=== PATIENT | male | born 1960 | race African-American/Black ===

== ENCOUNTER 2017-07-21 16:42 | Emergency (ER) | payer MEDICARE ==
[~2017-07-21] VITALS: Ht 185.4 cm; Wt 95.5 kg
[2017-07-21 17:10] VITALS: Ht 185.4 cm; Wt 95.5 kg
[2017-07-21 20:27] LABS: BASOPHILS 0.2 % (0-2); EOSINOPHILS 1.1 % (0-7); HEMATOCRIT 31.7 % (42.0-54.0); HEMOGLOBIN 10.1 g/dL (13.5-17.5); IMMATURE GRANULOCYTES 0.2 % (0-5); LYMPHOCYTES 20.2 % (15-50); MCH 31.6 pg (26.0-34.0); MCHC 31.9 g/dL (31.0-37.0); MCV 99.1 fL (80.0-100.0); MEAN PLATELET VOLUME 10.5 fL (7.4-10.4); MONOCYTES 8.8 % (2-11); NEUTROPHILS 69.5 % (40-80); PLATELET COUNT 161 10x3/uL (130-400); RDW 13.3 % (11.5-14.5); WBC 6.3 10x3/uL (4.8-10.8)
[2017-07-21 20:31] LABS: APTT 27.6 SECONDS (22.8-39.4); INR 1.14 (0.85-1.17); PROTIME 14.2 SECONDS (11.6-15.0)
[2017-07-21 20:36] LABS: ALBUMIN 3.1 g/dL (3.4-5.0); ANION GAP 10.1 mmol/L (8-16); BILIRUBIN - TOTAL 0.97 mg/dL (0.2-1.3); CARBON DIOXIDE 31.3 mmol/L (21.0-32.0); CREATININE - SERUM 3.6 mg/dL (0.6-1.3); POTASSIUM - SERUM 3.4 mmol/L (3.5-5.1); PROTEIN - SERUM 7.3 g/dL (6.4-8.2)
[2017-07-22 04:43] VITALS: BP 127/82
== END 2017-07-21 22:18 | disposition home or self-care (01) ==
LOC: D.ER 16:42
PROVIDERS: Family Medicine
DX: T82.838A Hemorrhage due to vascular prosthetic devices, implants and grafts, initial encounter (principal); I12.0 Hypertensive chronic kidney disease with stage 5 chronic kidney disease or end stage renal disease; N18.6 End stage renal disease; I50.9 Heart failure, unspecified

== ENCOUNTER 2019-10-11 06:43 | Day surgery (SDC) | payer OTHER, MEDICARE ==
[~2019-10-11] VITALS: Ht 185.4 cm; Wt 83.0 kg
--- NOTE | ~2019-10-11 | OP ---
PATIENT NAME: QAMAR LEE MEDICAL RECORD: [id number] :60 LOCATION:[facility] ADMISSION DATE: SURGEON: KALLI ELY MD DATE OF OPERATION: 10/11/2019 PREOPERATIVE DIAGNOSES: End-stage renal disease and dependence on hemodialysis and thrombocytopenia, uncertain etiology. POSTOPERATIVE DIAGNOSES: End-stage renal disease and dependence on hemodialysis and thrombocytopenia, uncertain etiology. OPERATION PERFORMED: Implantation of right arm brachial artery to axillary vein rainbow configured Artegraft AV graft. SURGEON: Kalli Eyl MD ANESTHESIA: Regional nerve block plus general per LOCK ASSEMBLER BLOOD LOSS: Insignificant. The patient transfused 1 unit platelets intraoperatively. PREOPERATIVE NOTE: Mr. Lee is a 58-year-old male who has begun hemodialysis with a right internal jugular tunneled dialysis catheter. He has a left-sided AICD. He was referred to me by Dr. Alcides Fine. DESCRIPTION OF PROCEDURE: Under nerve block and general with LMA per LOCK ASSEMBLER, the patient was placed in supine position and the right arm prepped and draped in sterile manner. A [place] drain was used as a proximal tourniquet and nitroglycerin paste applied to the intact skin of the arm and forearm and he was examined with Duplex ultrasound. His superficial veins in both the forearm and upper arm were all too small to utilize for creation of a dialysis access fistula or implantation of a graft. He was noted to have a large brachial artery and large paired brachial veins, which are the primary venous drainage. I elected to go ahead with a graft with a rainbow configuration. I made an incision just above the elbow and exposed the brachial artery and controlled it with Silastic loops and an incision in the axilla exposed the distal axillary vein, which was controlled with Silastic loops as well. The vein was opened and flushed with heparinized saline. An Artegraft was prepared and bevelled and then anastomosed end to side to the vein with running 6-0 Prolene. It was flushed with heparinized saline. The suture line was hemostatic. The graft was placed in a superficial subcutaneous tunnel, which curved laterally and then came back medially to the brachial artery where it was shortened and beveled. The artery was occluded with Silastic loops and opened. The artery was flushed proximally and distally with heparinized saline. An anastomosis end of graft to side of artery was done with running 6-0 Prolene. When that was complete, the occluding clamps and loops were released. Excellent flow developed immediately within the graft. Doppler demonstrated a significant reduction in the Doppler flow signal over the radial artery with the graft open and increase in flow signal with digital occlusion of the graft. The hand showed no evidence of ischemia and at that time, the patient's pressure was in the 90s systolic. I elected to go with that and see if the patient has any steal symptoms when he is awake and has more normal pressure. The wounds were irrigated with Ancef and gentamicin solution. Hemostasis obtained additionally with electrocautery and at the end of the case also with some Fibrillar oxidized cellulose. The wounds were closed with interrupted inverted 3-0 Vicryl without the use of a drain and OPERATIVE REPORT [id number] QAMAR LEE the skin incisions were closed with a running intracuticular 4-0 Stratafix and Dermabond glue, dressed with Maxorb Ag, Tegaderm, and Cavilon skin prep. Awakened and in stable condition with good flow in the graft, the patient was taken to the recovery room. He will be allowed to go home later today assuming he remains stable and has no bleeding or ischemic problems. He will come back to see me in my office on Monday, the , and he is given a prescription for 10 tablets of [place] 7.5/325. Preoperatively, the patient was found to be thrombocytopenic with a platelet count of about 75,000 and because of that, I did give him 1 unit of pheresed platelets intraoperatively because of my concern for bleeding and in fact, he was woozy or bleedy. NTS:[id number] Voice Confirmation ID: [id number] DOCUMENT ID: [id number] KALLI ELY MD CC: ALCIDES FINE MD [id number] DICTATION DATE: 10/11/19 1136 [place]: 10/11/192001 [facility] 10/11/19 [place] [id number] [place] [id number]
[2019-10-11 07:15] LABS: HEMATOCRIT 38.2 % (42.0-54.0); MCHC 31.4 g/dL (31.0-37.0); MCV 104.9 fL (80.0-100.0); RBC 3.64 10x6/uL (4.20-6.10); RDW 15.9 % (11.5-14.5); WBC 2.5 10x3/uL (4.8-10.8)
[2019-10-11 07:38] LABS: ANION GAP 13.4 mmol/L (8-16); CALCIUM 9.1 mg/dL (8.5-10.1); CARBON DIOXIDE 28.3 mmol/L (21.0-32.0); CREATININE - SERUM 4.4 mg/dL (0.6-1.3); POTASSIUM - SERUM 3.7 mmol/L (3.5-5.1)
[2019-10-11 07:43] LABS: PLATELET COUNT 72 10x3/uL (130-400)
[2019-10-11 07:44] LABS: INR 1.25 (0.85-1.17); PROTIME 15.6 SECONDS (11.6-15.0)
[2019-10-11] MEDS ORDERED: LIPITOR40 MG PO (08:31)
[2019-10-11] MEDS ORDERED: COREG12.5 MG PO (08:32)
[2019-10-11] MEDS ORDERED: ZYLOPRIM100 MG PO (08:33)
[2019-10-11] MEDS ORDERED: CARAFATE1 G PO (08:33)
[2019-10-11] MEDS ORDERED: PROTONIX40 MG PO (08:33)
[2019-10-11] MEDS ORDERED: APPLE CIDER VINEGAR (08:34)
[2019-10-11] MEDS ORDERED: NORCO 7.5-3251 EACH (08:35)
[2019-10-11] MEDS ORDERED: NORCO 7.5-3251 EACH PO (08:36)
[2019-10-11 08:45] VITALS: BP 132/97; Ht 185.4 cm; Wt 83.0 kg
[2019-10-11] MEDS ORDERED: HYDROCODON-ACE1 EAC7 PO (11:17)
[2019-10-11 12:01] LABS: EOSINOPHILS 2 % (0-7); LYMPHOCYTES 37 % (15-50); MONOCYTES 9 % (2-11); NEUTROPHILS 52 % (40-80); PLATELET ESTIMATE DECREASED
[2019-10-11 12:02] LABS: ANISOCYTOSIS OCC
--- NOTE | 2019-10-11 13:47 | NUR ---
[age] VS STABLE APPEARS CALM AND C/O PIN TO RIGHT ARM. UNABLE TO LEFT ARM. DRESSING CDI SLING IN PLACE. BLOCK TO RIGHT ARM. WIGGLES FREELY. INSTRUCTIONS GIVEN.
== END 2019-10-11 13:20 | disposition home or self-care (01) ==
LOC: D.OPS 06:43
PROVIDERS: Surgery; ATTEND Internal Medicine Nephrology
DX: N18.6 End stage renal disease (principal); Z99.2 Dependence on renal dialysis; D69.6 Thrombocytopenia, unspecified; K21.9 Gastro-esophageal reflux disease without esophagitis